=== PATIENT | female | born 1995 | race Two or more races ===

== ENCOUNTER 2019-06-20 23:10 | Emergency (ER) | payer OTHER ==
[2019-06-20 23:23] VITALS: BP 143/92
--- NOTE | 2019-06-20 23:24 | ED Physician Documentation ---
General Adult - HISTORIAN Historian: patient - HPI Chief Complaint: General Adult Additional Information: 23 year old female presents with multiple complaints; c/o nausea and vomiting x 2 today; cough; postnasal drainage; and bilateral rib pain from coughing. No fever or chills. Symptoms started yesterday. Onset: days ago Timing: still present - ROS CONST: no problems EYES/ENT: nasal drainage CVS/RESP: cough GI/: vomiting, nausea MS/SKIN/LYMPH: none NEURO/PSYCH: denies: headache - PAST HX Past History: hypertension Other History: diabetes Type 2 Surgeries/Procedures: , other (tonsilectomy) Immunizations: UTD Allergies/Adverse Reactions: Allergies Allergy/AdvReac Type Severity Reaction Status Date / Time peanut Allergy Verified 06/20/19 23:23 Home Medications: Ambulatory Orders Medication Instructions Recorded Lisinopril [Prinivil] 10 mg PO DAILY 06/20/19 Metformin HCl [Metformin ER 500 mg PO DAILY 06/20/19 Osmotic] - SOCIAL HX Smoking History: non-smoker Alcohol Use: none Drug Use: none - FAMILY HX Family History: No - REVIEWED ASSESSMENTS Nursing Assessment Reviewed: Yes Vitals Reviewed: Yes General Adult Physical Exam - PHYSICAL EXAM GENERAL APPEARANCE: no distress EENT: eye inspection normal, ENT inspection normal, pharynx normal, no signs of dehydration, OSEI, TM's nml NECK: normal inspection, supple RESPIRATORY: breath sounds normal CVS: heart sounds normal ABDOMEN: soft, normal bowel sounds BACK: normal inspection SKIN: warm/dry, normal color EXTREMITIES: non-tender, normal range of motion NEURO: oriented X3, CN's nml as tested, motor nml, sensation nml Discharge Clincal Impression: Nausea & vomiting, Cough in adult Additional Instructions: Start with clear liquid diet for 12 hours Advance diet as tolerated; start with toast, cracker Avoid greasy, spicy, fatty foods Cough- continue with cough medicine as needed Hot tea with tsp of honey will help thin secretions Increase water intake > 64 oz daily Follow up with PCP next week for re-evaluation Condition: Good Disposition: 01 HOME, SELF-CARE Decision to Admit: NO Decision Time: 23:25
== END 2019-06-20 23:35 | disposition home or self-care (01) ==
LOC: ED 23:10
DX: R11.2 Nausea with vomiting, unspecified (principal); R05 Cough
CPT/HCPCS: 99282